=== PATIENT | female | born 2000 | race African-American/Black ===

== ENCOUNTER 2018-06-15 06:12 | Inpatient (IN) | payer SELFPAY ==
[~2018-06-15] VITALS: Ht 162.6 cm; Wt 82.1 kg
[2018-06-15 06:55] LABS: HEMATOCRIT. 37.8 % (36.0-48.0); MEAN CORPUSCULAR HEMOGLOBIN 26.4 pg (28.0-32.0); MEAN CORPUSCULAR VOLUME 83.5 fL (81.0-99.0); MEAN PLATELET VOLUME 10.2 fl (7.4-10.4); PLATELET 165 x1000/uL (130-400); RED BLOOD CELL COUNT 4.53 mill/uL (4.2-5.4); RED CELL DISTRIBUTION WIDTH 15.9 % (11.6-14.6)
[2018-06-15 07:06] LABS: CHLORIDE 106 mEq/L (98-107)
[2018-06-15 07:20] LABS: PLATELET ESTIMATE NORMAL
[2018-06-15 08:00] VITALS: BP 111/68
[2018-06-15] MEDS ORDERED: FAMOTIDINE 20MG/2ML VIAL IV STA (08:23)
[2018-06-15] MEDS ORDERED: MORPHINE SULFATE 4 MG/ML CPJ (NOT FOR IM USE) IV STA (08:23)
[2018-06-15] MEDS ORDERED: SODIUM CHLORIDE 0.9% 1,000 ML IV ONE (08:23)
[2018-06-15] MEDS ORDERED: ONDANSETRON HCL 4MG/2ML INJ IV STA (08:23)
[2018-06-15 08:40] LABS: CLARITY URINE CLOUDY (CLEAR); COLOR URINE YELLOW (YELLOW); KETONES URINE NEGATIVE (NEGATIVE); LEUKOCYTE ESTERASE URINE 1+ (NEGATIVE); NITRITE URINE NEGATIVE (NEGATIVE); OCCULT BLOOD URINE NEGATIVE (NEGATIVE); PROTEIN URINE NEGATIVE (NEGATIVE); SPECIFIC GRAVITY URINE 1.023 (1.005-1.030); UROBILINOGEN URINE 0.2 E.U./dL (0.2-1.0)
[2018-06-15 08:42] LABS: HCG SCREEN NEGATIVE
[2018-06-15 08:53] LABS: *AMPHETAMINES SCREEN URINE NEGATIVE (NEGATIVE); *BARBITURATES SCREEN URINE NEGATIVE (NEGATIVE); *BENZODIAZEPINES SCREEN URINE NEGATIVE (NEGATIVE)
[2018-06-15 08:54] LABS: *COCAINE SCREEN URINE NEGATIVE (NEGATIVE); METHADONE URINE SCREEN NEGATIVE (NEGATIVE); OPIATES URINE SCREEN NEGATIVE (NEGATIVE); PHENCYCLIDINE URINE SCREEN NEGATIVE (NEGATIVE)
[2018-06-15 09:02] LABS: CANNABINOID URINE SCREEN PRESUMTIVE POSITIVE (NEGATIVE)
[2018-06-15] MEDS ORDERED: SODIUM CHLORIDE 0.9% 1000ML BAG (SEPSIS BOLUS) IV ONE (09:15)
[2018-06-15] MEDS ORDERED: IOHEXOL-300 100 ML BOTTLE ONE (09:44)
[2018-06-15] MEDS ORDERED: DOXYCYCLINE 100 MG in DEXT 5% WATER 100 ML IV STA (09:55)
[2018-06-15] MEDS ORDERED: CEFAZOLIN 1000MG PREMIX 50 ML IV ONE (10:15)
[2018-06-15] MEDS ORDERED: CLINDAMYCIN 600 MG in DEXTROSE 5% WATER 50 ML IV ONE (10:15)
[2018-06-15] MEDS ORDERED: GENTAMICIN 80MG PREMIX 100 ML IV ONE (10:15)
[2018-06-15] MEDS ORDERED: LORAZEPAM 0.5MG TABLET PO PRN (13:45)
[2018-06-15] MEDS ORDERED: HYDROMORPHONE HCL/PF 2MG/ML CPJ IV PRN (13:45)
[2018-06-15] MEDS ORDERED: ONDANSETRON HCL 4MG/2ML INJ IV PRN (13:45)
[2018-06-15] MEDS ORDERED: MAGNESIUM/ALUMINUM HYDROXIDE/SIMETHICONE 30ML UDC PO PRN (13:45)
[2018-06-15] MEDS ORDERED: ACETAMINOPHEN 325MG TABLET PO PRN (13:45)
[2018-06-15] MEDS ORDERED: DIPHENHYDRAMINE 50MG/ML VIAL IV PRN (13:45)
[2018-06-15] MEDS ORDERED: GENTAMICIN 80MG PREMIX 100 ML IV SCH (14:00)
[2018-06-15] MEDS ORDERED: [UNRECOGNIZED DRUG - REMARK] XX SCH (14:15)
[2018-06-15] MEDS: DEXT 5%/0.45% NACL 1000ML 1,000 ML IV SCH (15:27)
[2018-06-15] MEDS: AMPICILLIN 2,000 MG in SODIUM CHLORIDE 0.9% 100 ML IV SCH ×2 (15:27→18:39)
[2018-06-15 15:35] VITALS: BP 111/71
[2018-06-15 16:00] VITALS: BP 113/63
[2018-06-15] MEDS ORDERED: GENTAMICIN SULFATE 300 MG in SODIUM CHLORIDE 0.9% 100 ML IV SCH (16:00)
[2018-06-15] MEDS ORDERED: INFLUENZA VIRUS VACCINE(AFLURIA) 0.5ML SYR IM ONE (16:30)
[2018-06-15] MEDS ORDERED: PNEUMOCOCCAL 23-VAL P-SAC VAC 0.5 ML IM ONE (16:30)
[2018-06-15] MEDS: CLINDAMYCIN 900 MG in DEXTROSE 5% WATER 50 ML IV SCH (17:20)
[2018-06-15 20:00] VITALS: BP 94/43
[2018-06-16] VITALS: BP 99/48
[2018-06-16] MEDS: AMPICILLIN 2,000 MG in SODIUM CHLORIDE 0.9% 100 ML IV SCH ×4 (00:02→18:54)
[2018-06-16] MEDS: CLINDAMYCIN 900 MG in DEXTROSE 5% WATER 50 ML IV SCH ×3 (01:04→16:57)
[2018-06-16 04:00] VITALS: BP 115/55
[2018-06-16] MEDS: DEXT 5%/0.45% NACL 1000ML 1,000 ML IV SCH ×2 (05:09→16:57)
[2018-06-16 08:40] VITALS: BP 97/52
[2018-06-16] MEDS: GENTAMICIN 120MG PREMIX 100 ML IV SCH ×2 (10:04→21:32)
[2018-06-16 12:00] VITALS: BP 102/62
[2018-06-16 16:03] VITALS: BP 109/53
[2018-06-16 20:00] VITALS: BP 114/68
[2018-06-17] VITALS: BP 110/63
[2018-06-17] MEDS: AMPICILLIN 2,000 MG in SODIUM CHLORIDE 0.9% 100 ML IV SCH ×3 (01:19→12:58)
[2018-06-17] MEDS: CLINDAMYCIN 900 MG in DEXTROSE 5% WATER 50 ML IV SCH ×2 (02:08→08:39)
[2018-06-17 04:00] VITALS: BP 99/57
[2018-06-17 07:01] LABS: HEMATOCRIT. 33.3 % (36.0-48.0); MEAN CORPUSCULAR HEMOGLOBIN 27.1 pg (28.0-32.0); MEAN CORPUSCULAR VOLUME 82.4 fL (81.0-99.0); MEAN PLATELET VOLUME 10.6 fl (7.4-10.4); PLATELET 140 x1000/uL (130-400); RED BLOOD CELL COUNT 4.04 mill/uL (4.2-5.4)
[2018-06-17 07:33] LABS: CHLORIDE 110 mEq/L (98-107)
[2018-06-17 07:47] LABS: GENTAMICIN RANDOM 1.2 ug/mL
[2018-06-17 08:00] VITALS: BP 102/63
[2018-06-17] MEDS: DEXT 5%/0.45% NACL 1000ML 1,000 ML IV SCH ×2 (08:39→13:57)
[2018-06-17] MEDS: GENTAMICIN 120MG PREMIX 100 ML IV SCH (09:39)
[2018-06-17 12:38] VITALS: BP 109/69
[2018-06-17 14:07] LABS: PLATELET ESTIMATE NORMAL
[2018-06-17 15:39] VITALS: BP 109/69
[2018-06-17 16:00] VITALS: BP 110/72
[2018-06-20 04:11] LABS: CHLAMYDIA TRACHOMATIS NAA Negative (Negative); NEISSERIA GONORRHOEAE NAA Negative (Negative)
== END 2018-06-17 16:00 | disposition home or self-care (01) | DRG 531 ==
LOC: ER 06:12 → 6EST 10:05 → EDBEDREQ 10:10 → ENRESERV 11:15
PROVIDERS: ADMIT Obstetrics & Gynecology; ATTEND Obstetrics & Gynecology
DX: N73.9 Female pelvic inflammatory disease, unspecified (principal); N94.10 Unspecified dyspareunia
CPT/HCPCS: 36415; 74177; 76830; 76856; 80048; 80170; 80305; 83605; 84703; 87081; 87210; 87491; 87591; 90686; 90732; 96361; 96365; 96367; 96368; 96375; 99291; J0290; J0690; J1580; J2270; J2405; J3490; J7030; J7050; J7060; Q9967